=== PATIENT | female | born 1940 | race Caucasian/White ===

== ENCOUNTER 2017-07-11 18:49 | Inpatient (IN) | payer MEDICARE, OTHER ==
[~2017-07-11] VITALS: Ht 157.5 cm; Wt 75.0 kg
[2017-07-11] MEDS ORDERED: METR250T PO (19:02)
[2017-07-11] MEDS ORDERED: VENL-191 PO (19:04)
[2017-07-11] MEDS ORDERED: LISI-600 PO (19:04)
[2017-07-11] MEDS ORDERED: DEXL30CA3 (19:04)
[2017-07-11] MEDS ORDERED: SIMV10TA2 PO (19:04)
[2017-07-11] MEDS ORDERED: temazepam 15mg capsule PO PRN (21:00)
[2017-07-11] MEDS ORDERED: ondansetron/PF 4mg/2ml inj IV ONE (21:55)
[2017-07-11] MEDS ORDERED: normal saline 1000ML IV soln IVB ONE (21:55)
[2017-07-11 22:11] LABS: BASOPHILS % (AUTO) 0.1 % (0-1); EOSINOPHILS # (AUTO) 0.1 X10'3 (0-0.9); EOSINOPHILS % (AUTO) 1.2 % (0-6); HEMATOCRIT 36.2 % (35.0-45.0); HEMOGLOBIN 12.6 g/dl (12.0-16.0); LYMPHOCYTES # (AUTO) 1.6 X10'3 (1.1-4.8); LYMPHOCYTES % (AUTO) 25.1 % (21-51); MEAN CORPUSCULAR HEMOGLOBIN 29.6 PG (27.0-31.0); MEAN CORPUSCULAR HGB CONC 34.8 % (33.0-36.5); MEAN PLATELET VOLUME 6.8 FL (7.4-10.4); MONOCYTES # (AUTO) 0.6 X10'3 (0-0.9); MONOCYTES % (AUTO) 8.9 % (2-12); NEUTROPHILS # (AUTO) 4.3 X10'3 (1.8-7.7); NEUTROPHILS % (AUTO) 64.7 % (42-75); PLATELET COUNT 219 X10'3 (140-440); RED BLOOD COUNT 4.25 X10'6 (4.20-5.60); RED CELL DISTRIBUTION WIDTH 12.9 % (11.5-14.5); WHITE BLOOD COUNT 6.6 X10'3 (4.5-11.0)
[2017-07-11 22:23] LABS: ALANINE AMINOTRANSFERASE 35 U/L (12-78); ALBUMIN 3.9 G/DL (3.4-5.0); ALBUMIN/GLOBULIN RATIO 1.1 (1.1-1.5); ALKALINE PHOSPHATASE 88 IU/L (46-116); ANION GAP 13 (8-16); ASPARTATE AMINO TRANSFERASE 32 U/L (10-37); BILIRUBIN,TOTAL 0.8 MG/DL (0.1-1.0); BLOOD UREA NITROGEN 18 MG/DL (7-18); BUN/CREATININE RATIO 10.6 (6.6-38.0); CALCIUM 9.2 MG/DL (8.5-10.1); CHLORIDE 86 MMOL/L (99-107); GLUCOSE 95 MG/DL (70-104); LIPASE 253 U/L (73-393); MAGNESIUM 1.5 MG/DL (1.5-2.4); SODIUM 122 MMOL/L (135-145); TOTAL PROTEIN 7.4 G/DL (6.4-8.2); eGFR 29 ML/MIN
[2017-07-11] MEDS ORDERED: ondansetron/PF 4mg/2ml inj IV PRN (23:25)
[2017-07-11] MEDS ORDERED: magnesium hydroxide 30ml (MOM) UD suspension PO PRN (23:25)
[2017-07-11] MEDS ORDERED: mag hydrox/Alum hydrox/simeth 30ml oral suspension PO PRN (23:25)
[2017-07-11] MEDS ORDERED: magnesium 2GM in 50ml NS 50 ML IV PRN (23:25)
[2017-07-11] MEDS ORDERED: potassium Cl 20 mEq SR tablet PO PRN ×2 (23:25)
[2017-07-11] MEDS ORDERED: magnesium 4gm in 100ml NS 100 ML IV PRN (23:25)
[2017-07-11] MEDS ORDERED: acetaminophen 325mg tablet PO PRN (23:25)
[2017-07-11] MEDS ORDERED: HYDROcodone/acetaminophen 10/325mg tab PO PRN (23:25)
[2017-07-11] MEDS ORDERED: potassium Cl 40MEQ/NS 500ml 500 ML IV PRN ×2 (23:25)
[2017-07-11] MEDS ORDERED: HYDROcodone/acetaminophen 5mg/325mg tablet PO PRN (23:25)
[2017-07-12] MEDS: metroNIDAZOLE-Flagyl 500mg/NS 100 ML IV SCH ×3 (01:51→15:09)
[2017-07-12] MEDS: normal saline 1000ml 1,000 ML IV SCH ×3 (01:51→19:22)
[2017-07-12 02:31] VITALS: BP 159/80
[2017-07-12 05:26] LABS: BASOPHILS % (AUTO) 0.2 % (0-1); EOSINOPHILS # (AUTO) 0.1 X10'3 (0-0.9); EOSINOPHILS % (AUTO) 1.8 % (0-6); HEMATOCRIT 31.5 % (35.0-45.0); HEMOGLOBIN 10.8 g/dl (12.0-16.0); LYMPHOCYTES # (AUTO) 1.3 X10'3 (1.1-4.8); LYMPHOCYTES % (AUTO) 26.1 % (21-51); MEAN CORPUSCULAR HEMOGLOBIN 29.5 PG (27.0-31.0); MEAN CORPUSCULAR HGB CONC 34.3 % (33.0-36.5); MEAN CORPUSCULAR VOLUME 86.1 FL (78-98); MEAN PLATELET VOLUME 7.2 FL (7.4-10.4); MONOCYTES # (AUTO) 0.5 X10'3 (0-0.9); MONOCYTES % (AUTO) 10.2 % (2-12); NEUTROPHILS # (AUTO) 3.1 X10'3 (1.8-7.7); NEUTROPHILS % (AUTO) 61.7 % (42-75); PLATELET COUNT 194 X10'3 (140-440); RED BLOOD COUNT 3.65 X10'6 (4.20-5.60); RED CELL DISTRIBUTION WIDTH 12.7 % (11.5-14.5)
[2017-07-12 06:20] LABS: ALANINE AMINOTRANSFERASE 28 U/L (12-78); ALBUMIN 3.1 G/DL (3.4-5.0); ALKALINE PHOSPHATASE 72 IU/L (46-116); ANION GAP 9 (8-16); ASPARTATE AMINO TRANSFERASE 26 U/L (10-37); BILIRUBIN,TOTAL 0.6 MG/DL (0.1-1.0); BLOOD UREA NITROGEN 16 MG/DL (7-18); BUN/CREATININE RATIO 9.6 (6.6-38.0); CALCIUM 8.4 MG/DL (8.5-10.1); CHLORIDE 93 MMOL/L (99-107); CHOL/HDL RATIO 1.7 (0.00-4.99); CHOLESTEROL 138 MG/DL (0-200); CREATININE 1.66 MG/DL (0.40-0.90); GLUCOSE 120 MG/DL (70-104); HDL CHOLESTEROL 79 MG/DL (35-60); LDL CHOLESTEROL 50 MG/DL (50-100); MAGNESIUM 1.4 MG/DL (1.5-2.4); POTASSIUM 3.2 MMOL/L (3.5-5.1); SODIUM 127 MMOL/L (135-145); TOTAL CARBON DIOXIDE 24.7 MMOL/L (24-32); TOTAL PROTEIN 6.1 G/DL (6.4-8.2); TRIGLYCERIDES 39 MG/DL (20-135); eGFR 30 ML/MIN
[2017-07-12] MEDS: lisinopril 20mg tablet PO SCH (07:23)
[2017-07-12] MEDS: venlafaxine 37.5mg tablet PO SCH ×2 (07:23→20:00)
[2017-07-12] MEDS: lactobacillus rhamnosus 10,000 MMU CELLS/CAPSULE PO SCH ×2 (07:23→21:09)
[2017-07-12] MEDS: magnesium Cl slow-release 64mg tablet PO PRN (07:23)
[2017-07-12] MEDS: heparin, porcine 5000 units/ml vial SQ SCH ×2 (07:23→21:10)
[2017-07-12 08:00] VITALS: BP 126/76
[2017-07-12] MEDS: K and/or MAG REPLACEMENT MC SCH (08:00)
[2017-07-12 10:31] LABS: C DIFF ANTIGEN NEGATIVE (NEGATIVE); C DIFF SPECIMEN=DIARRHEA? ACCEPTABLE; C DIFFICILE TOXINS A&B NEGATIVE (Neg)
[2017-07-12 12:00] VITALS: BP 145/75
[2017-07-12 15:21] LABS: ALANINE AMINOTRANSFERASE 29 U/L (12-78); ALBUMIN 3.1 G/DL (3.4-5.0); ALKALINE PHOSPHATASE 73 IU/L (46-116); ANION GAP 8 (8-16); ASPARTATE AMINO TRANSFERASE 30 U/L (10-37); BILIRUBIN,TOTAL 0.6 MG/DL (0.1-1.0); BLOOD UREA NITROGEN 13 MG/DL (7-18); BUN/CREATININE RATIO 8.4 (6.6-38.0); CALCIUM 8.4 MG/DL (8.5-10.1); CHLORIDE 95 MMOL/L (99-107); CREATININE 1.55 MG/DL (0.40-0.90); GLUCOSE 124 MG/DL (70-104); POTASSIUM 3.4 MMOL/L (3.5-5.1); SODIUM 128 MMOL/L (135-145); TOTAL CARBON DIOXIDE 25.2 MMOL/L (24-32); TOTAL PROTEIN 6.2 G/DL (6.4-8.2); eGFR 33 ML/MIN
[2017-07-12 18:00] VITALS: BP 137/69
[2017-07-12] MEDS ORDERED: nortriptyline 10mg capsule PO SCH (21:00)
[2017-07-12] MEDS ORDERED: atorvastatin 10mg tablet PO SCH (21:00)
[2017-07-12] MEDS ORDERED: non-formulary drug (Simvastatin (Zocor) 1 TAB) PO SCH (21:00)
[2017-07-13] MEDS: metroNIDAZOLE-Flagyl 500mg/NS 100 ML IV SCH ×2 (01:15→09:18)
[2017-07-13] MEDS: normal saline 1000ml 1,000 ML IV SCH ×2 (05:22→09:23)
[2017-07-13 05:43] LABS: BASOPHILS % (AUTO) 0.4 % (0-1); EOSINOPHILS # (AUTO) 0.1 X10'3 (0-0.9); EOSINOPHILS % (AUTO) 3.5 % (0-6); HEMATOCRIT 30.1 % (35.0-45.0); HEMOGLOBIN 10.6 g/dl (12.0-16.0); LYMPHOCYTES % (AUTO) 27.7 % (21-51); MEAN CORPUSCULAR HEMOGLOBIN 29.9 PG (27.0-31.0); MEAN CORPUSCULAR HGB CONC 35.1 % (33.0-36.5); MEAN CORPUSCULAR VOLUME 85.3 FL (78-98); MEAN PLATELET VOLUME 7.2 FL (7.4-10.4); MONOCYTES # (AUTO) 0.4 X10'3 (0-0.9); MONOCYTES % (AUTO) 11.4 % (2-12); NEUTROPHILS # (AUTO) 2.2 X10'3 (1.8-7.7); PLATELET COUNT 183 X10'3 (140-440); RED BLOOD COUNT 3.53 X10'6 (4.20-5.60); WHITE BLOOD COUNT 3.8 X10'3 (4.5-11.0)
[2017-07-13 06:12] LABS: ALANINE AMINOTRANSFERASE 25 U/L (12-78); ALBUMIN/GLOBULIN RATIO 1.1 (1.1-1.5); ALKALINE PHOSPHATASE 66 IU/L (46-116); ANION GAP 8 (8-16); ASPARTATE AMINO TRANSFERASE 26 U/L (10-37); BILIRUBIN,TOTAL 0.5 MG/DL (0.1-1.0); BLOOD UREA NITROGEN 9 MG/DL (7-18); BUN/CREATININE RATIO 7.4 (6.6-38.0); CALCIUM 8.3 MG/DL (8.5-10.1); CHLORIDE 102 MMOL/L (99-107); CREATININE 1.21 MG/DL (0.40-0.90); GLUCOSE 88 MG/DL (70-104); MAGNESIUM 1.4 MG/DL (1.5-2.4); SODIUM 134 MMOL/L (135-145); TOTAL PROTEIN 5.8 G/DL (6.4-8.2); eGFR 43 ML/MIN
[2017-07-13 07:44] VITALS: BP 114/51
[2017-07-13] MEDS: K and/or MAG REPLACEMENT MC SCH (08:00)
[2017-07-13] MEDS: venlafaxine 37.5mg tablet PO SCH (08:00)
[2017-07-13] MEDS: lisinopril 20mg tablet PO SCH (09:18)
[2017-07-13] MEDS: lactobacillus rhamnosus 10,000 MMU CELLS/CAPSULE PO SCH (09:18)
[2017-07-13] MEDS: heparin, porcine 5000 units/ml vial SQ SCH (09:19)
[2017-07-13] MEDS: magnesium Cl slow-release 64mg tablet PO PRN (09:23)
[2017-07-13] MEDS ORDERED: psyllium seed 3.4 gm packet PO STA (09:58)
[2017-07-13 11:46] VITALS: BP 143/108
[2017-07-13] MEDS ORDERED: NORT10CA2 PO (12:06)
[2017-07-13] MEDS ORDERED: PSYL3.4P5 PO (12:06)
== END 2017-07-13 14:10 | disposition home or self-care (01) | DRG 683 ==
LOC: ER 18:51 → ED HOLD 23:22 → MED 3N 07-12 01:00
PROVIDERS: ADMIT Internal Medicine; ATTEND Family Medicine
DX: N17.9 Acute kidney failure, unspecified (principal); E87.1 Hypo-osmolality and hyponatremia; E86.0 Dehydration; E78.5 Hyperlipidemia, unspecified; F32.9 Major depressive disorder, single episode, unspecified; F41.9 Anxiety disorder, unspecified; I10 Essential (primary) hypertension; K52.9 Noninfective gastroenteritis and colitis, unspecified; Z90.710 Acquired absence of both cervix and uterus; Z90.49 Acquired absence of other specified parts of digestive tract; Z79.899 Other long term (current) drug therapy; Z88.2 Allergy status to sulfonamides; Z80.1 Family history of malignant neoplasm of trachea, bronchus and lung
CPT/HCPCS: 36415; 74176; 80053; 80061; 83690; 83735; 84443; 85025; 87045; 87046; 87070; 87324; 87449; 89055; 96361; 96374; 99285; J1644; J2405; J3480; J3490; J7030

== ENCOUNTER 2017-09-21 16:37 | Emergency (ER) | payer MEDICARE, OTHER ==
[~2017-09-21] VITALS: Ht 157.5 cm; Wt 65.4 kg
[~2017-09-21 16:37] MED LIST: DEXL30CA3; LISI-600 PO; NORT10CA2 PO; PSYL3.4P5 PO; SIMV10TA2 PO; VENL-191 PO
[2017-09-21] MEDS ORDERED: bacitracin 15gm ointment TP ONE (17:20)
[2017-09-21 19:00] VITALS: BP 168/84
== END 2017-09-21 19:01 | disposition home or self-care (01) ==
LOC: ER 16:37
DX: S01.81XA Laceration without foreign body of other part of head, initial encounter (principal); S40.811A Abrasion of right upper arm, initial encounter; Z88.2 Allergy status to sulfonamides; Z79.899 Other long term (current) drug therapy; W01.0XXA Fall on same level from slipping, tripping and stumbling without subsequent striking against object, initial encounter; Y93.89 Activity, other specified; Y92.89 Other specified places as the place of occurrence of the external cause; Y99.8 Other external cause status
CPT/HCPCS: 12011; 70450; 73030; 99284; A6449

== ENCOUNTER 2017-09-26 09:39 | Emergency (ER) | payer MEDICARE, OTHER ==
[~2017-09-26] VITALS: Ht 157.5 cm; Wt 62.0 kg
[2017-09-26 09:46] VITALS: BP 116/73
== END 2017-09-26 10:35 | disposition home or self-care (01) ==
LOC: ER 09:40
DX: S01.81XD Laceration without foreign body of other part of head, subsequent encounter (principal); Z88.2 Allergy status to sulfonamides; X58.XXXD Exposure to other specified factors, subsequent encounter
CPT/HCPCS: 99284